=== PATIENT | male | born 1950 | race Caucasian/White ===

== ENCOUNTER 2016-04-14 13:05 | Emergency (ER) | payer OTHER ==
[2016-04-14] MEDS ORDERED: NS 1,000 ML IV ONE (13:46)
[2016-04-14 13:51] LABS: COLOR YELLOW; LEUKOCYTE ESTERASE,URINE NEGATIVE (NEGATIVE); NITRITE,URINE NEGATIVE (NEGATIVE); PH,URINE 5.5 (5.0-7.5)
[2016-04-14 13:58] LABS: % IMMATURE GRANULYOCYTES 0.2 % (0.0-1.1); ABSOLUTE IMMATURE GRANULOCYTES 0.02 10^3/uL (0.00-0.10); ADD DIFF? NO; ADD MORPH? NO; ADD SCAN? NO; ATYPICAL LYMPHOCYTE FLAG 0 (0-99); FRAGMENT RBC FLAG 0 (0-99); HEMATOCRIT 41.6 % (40.0-51.0); HEMOGLOBIN 13.3 g/dL (13.7-17.5); LEFT SHIFT FLG 0 (0-99); LIPEMIA HEMOLYSIS FLAG 80 (0-99); MEAN CELL HEMOGLOBIN 27.6 pg (27.9-34.1); MEAN CELL VOLUME 86.3 fL (81.5-99.8); MEAN PLATELET VOLUME 8.7 fL (8.7-11.7); PLATELET CLUMPS FLAG 0 (0-99); PLATELET COUNT 264 10^3/uL (150-400); RED BLOOD CELL COUNT 4.82 10^6/uL (4.40-6.38); RED CELL DISTRIBUTION WIDTH 14.7 % (11.5-15.2)
--- NOTE | 2016-04-14 13:59 | UCPHY ---
H & P Time Seen by Provider: 04/14/16 13:31 Patient Type: Established HPI/ROS: CHIEF COMPLAINT: Abdominal pain HISTORY OF PRESENT ILLNESS: 65-year-old male presents to urgent care by private vehicle complaining of abdominal pain. The patient states 1 week ago he noted blood in his urine. He saw his primary care provider and was started on antibiotics. He was told however that his urine culture was negative. Does report that the hematuria has resolved. He however has had continued right flank pain over the last 1 week and yesterday after work he thought that he was dehydrated so after he drank a large amount of water he developed severe pain in his abdomen which has persisted since last night. No nausea or vomiting. He is having normal bowel movements and passing gas normally. No other reported trauma. He had reported chills yesterday when he came home from work although he did not take his temperature. He denies dysuria, urgency or frequency with urination. He has never had pain like this in the past. No URI symptoms. No chest pain or difficulty breathing. No headache. REVIEW OF SYSTEMS: Constitutional: No fever, no chills. Eyes: No double or blurry vision. ENT: No sore throat. Respiratory: No cough, no shortness of breath. Cardiac: No chest pain. Gastrointestinal: Abdominal pain as above. No vomiting or diarrhea. Genitourinary: Hematuria now resolved as above. No dysuria. Musculoskeletal: No neck or back pain. Skin: No rashes. Neurological: No headache. Past Medical/Surgical History: Multiple orthopedic surgeries, fusion from T12-L2 on March 05, [address] Al Chapman. Social History: Smoking Status: Never smoked Physical Exam: General Appearance: Alert, no distress. Pleasant. No apparent distress. Afebrile this temperature 36.8, 152/80, heart rate 94, 94% on room air. Eyes: Pupils equal and round. Extraocular motions are all intact. ENT: Mouth: Mucous membranes moist. Respiratory: No wheezing, rhonchi, or rales, lungs are clear to auscultation. Cardiovascular: Regular rate and rhythm. Gastrointestinal: Abdomen is soft. He has tenderness with palpation in the right lower quadrant. He has rebound tenderness. No guarding. No palpable masses. Has reproducible pain with palpation in the right flank area as well. No other CVA tenderness. No CVA tenderness on the left. Neurological: Alert and oriented x 3, cranial nerves II through XII grossly intact Skin: Warm and dry, no rashes. Musculoskeletal: Nontender to palpate along the cervical, thoracic or lumbar spine. Neck is supple. Extremities: Full range of motion and no peripheral edema. Patient has weakness with dorsi and plantar flexion in the right foot which is chronic for him. Psychiatric: Patient is oriented X 3, there is no agitation. Constitutional: Initial Vital Signs Temperature (C) 36.8 C 04/14/16 13:10 Heart Rate 94 04/14/16 13:10 Respiratory Rate 16 04/14/16 13:10 Blood Pressure 152/80 H 04/14/16 13:10 O2 Sat (%) 94 04/14/16 13:10 O2 Delivery Mode Room Air Allergies/Adverse Reactions: erythromycin base [Erythromycin Base] Allergy (Unknown, Verified 04/14/16 13:17) Other-Enter Comments oxycodone HCl [From Percocet] Allergy (Unknown, Verified 04/14/16 13:17) Rash hydromorphone HCl [From Dilaudid] Allergy (Verified 04/14/16 13:17) Other-Enter Comments Home Medications: Medication Instructions Recorded Ciprofloxacin [Cipro 500 mg] 500 mg PO BID #20 tab 04/14/16 Hydrocodone/APAP 5/325 [[place] 1 each PO Q4-6PRN PRN #15 tab 04/14/16 5/325 (*)] Symbicort 160-4.5 Mcg Inh (*) 04/14/16 metroNIDAZOLE [Flagyl 500 mg (*)] 500 mg PO TID #30 tab 04/14/16 Medical Decision Making - Diagnostics Imaging: CT imaging of the abdomen and pelvis reveals sigmoid diverticulitis without evidence of perforation. No renal mass noted. Right kidney is normal. This is reported to me by Dr. Anthony Arana at 3:05 p.m.. ED Course/Re-evaluation: The case was discussed with Dr. Sundar Alamo, secondary supervising physician. White blood cell count is normal. The patient has a hemoglobin of 13.3 with a normal hematocrit. His creatinine is normal. CT scan of the abdomen and pelvis with IV contrast has been ordered and is pending. CT imaging of the abdomen and pelvis with IV contrast reveals sigmoid diverticulitis. No evidence of perforation. This is in a similar location when he had diverticulitis in 2015. I offered admission to the hospital, however the patient declined. He is not vomiting and he has no fever. Feels comfortable treating this as an outpatient with oral medications. He will be treated with oral Flagyl 500 mg three times daily and oral Cipro 500 mg twice daily for 10 days. Encouraged him to follow up with primary care provider in 1-2 days to recheck. Was given strict instructions to return if he develops vomiting, fever, increasing pain, or if he seems worse in any way. Patient verbalized understanding and agreed. Patient was also given prescription for hydrocodone which she has taken in the past with relief. Differential Diagnosis: Including but not limited to diverticulitis, bowel obstruction, carcinoma, kidney stone, urinary tract infection, pyelonephritis - Data Points Laboratory Results: Laboratory Results 04/14/16 13:55 04/14/16 13:55 04/14/16 04/14/16 13:55 13:40 WBC 8.40 10^3/uL (3.80-9.50) RBC 4.82 10^6/uL (4.40-6.38) Hgb 13.3 L g/dL (13.7-17.5) Hct 41.6 % (40.0-51.0) MCV 86.3 fL (81.5-99.8) MCH 27.6 L pg (27.9-34.1) MCHC 32.0 L g/dL (32.4-36.7) RDW 14.7 % (11.5-15.2) Plt Count 264 10^3/uL (150-400) MPV 8.7 fL (8.7-11.7) Neut % (Auto) 68.7 % (39.3-74.2) Lymph % (Auto) 17.3 % (15.0-45.0) [place] % (Auto) 12.6 % (4.5-13.0) Eos % (Auto) 0.8 % (0.6-7.6) Baso % (Auto) 0.4 % (0.3-1.7) Nucleat RBC Rel Count 0.0 % (0.0-0.2) Absolute Neuts (auto) 5.77 10^3/uL (1.70-6.50) Absolute Lymphs (auto) 1.45 10^3/uL (1.00-3.00) Absolute Monos (auto) 1.06 H 10^3/uL (0.30-0.80) Absolute Eos (auto) 0.07 10^3/uL (0.03-0.40) Absolute Basos (auto) 0.03 10^3/uL (0.02-0.10) Absolute Nucleated RBC 0.00 10^3/uL (0-0.01) Immature Gran % 0.2 % (0.0-1.1) Immature Gran # 0.02 10^3/uL (0.00-0.10) Sodium 140 mEq/L (134-144) Potassium 3.7 mEq/L (3.5-5.2) Chloride 102 mEq/L (97-110) Carbon Dioxide 27 mEq/l (22-31) Anion Gap 11 mEq/L (8-16) BUN 16 mg/dL (7-23) Creatinine 0.7 mg/dL (0.7-1.3) Estimated GFR > 60 Glucose 68 L mg/dL (70-100) Calcium 9.1 mg/dL (8.5-10.4) Urine Color YELLOW Urine Appearance CLEAR Urine pH 5.5 (5.0-7.5) Ur Specific Pyrites 1.025 (1.002-1.030) Urine Protein NEGATIVE (NEGATIVE) Urine Ketones NEGATIVE (NEGATIVE) Urine Blood NEGATIVE (NEGATIVE) Urine Nitrate NEGATIVE (NEGATIVE) Urine Bilirubin NEGATIVE (NEGATIVE) Urine Urobilinogen 0.2 EU (0.2-1.0) Ur Leukocyte Esterase NEGATIVE (NEGATIVE) Urine RBC NONE SEEN /hpf (0-3) Urine WBC 1-3 /hpf (0-3) Ur Epithelial Cells TRACE /lpf (NONE-1+) Urine Bacteria TRACE H /hpf (NONE SEEN) Urine Mucus 2+ H /lpf (NONE-1+) Urine Yeast OCCASIONAL H /hpf (NONE SEEN) Urine Glucose TRACE H (NEGATIVE) Departure - Departure Disposition: Home, Routine, Self-Care Clinical Impression: Diverticulitis Qualifiers: Diverticulitis site: large intestine Diverticulitis bleeding: without bleeding Diverticulitis complication: without perforation or abscess Qualifier Code: ( K57.32) Diverticulitis of large intestine without perforation or abscess without bleeding Condition: Good Instructions: Diverticulitis (ED) Additional Instructions: Cipro twice daily and Flagyl three times daily for 10 days. Hydrocodone for severe pain as directed. You declined admission to the hospital. Please return to urgent care or go to the emergency department if you develop fever, if you begin vomiting, if you develop worsening pain, or if you feel worse in any way. Referrals: Trell Cervantes MD [Primary Care Provider] - 1-2 days without fail Prescriptions: Ciprofloxacin [Cipro 500 mg] 500 mg PO BID #20 tab metroNIDAZOLE [Flagyl 500 mg (*)] 500 mg PO TID #30 tab Hydrocodone/APAP 5/325 [[place] 5/325 (*)] 1 each PO Q4-6PRN PRN #15 tab PRN Reason: Pain, Severe - PQRS PQRS Measurement: 134: Depression screening and followup, PRIME MD-PHQ2 (12 years and older) Over the last 2 weeks, how often have you been bothered by any of the following problems? 1. Feeling down, depressed, or hopeless? 2. Little interest or pleasure in doing things? Patient answered no to both 1 and 2 130: Documentation of medications. Reviewed all patient medications, doses, route and frequency. 226: Do you smoke? No. 47: 65 and older: Advanced care planning. Patient designates surrogate decision maker as his . Patient has advanced directive. 51: 18 years old and older with diagnosis of COPD, spirometry performance. Patient has no history of COPD 52: 18 years old and older with COPD and symptoms of COPD or FEV1<60% predicted prescribed a B Agonist. Not applicable
[2016-04-14 14:01] LABS: BACTERIA TRACE /hpf (NONE SEEN); MUCUS 2+ /lpf (NONE-1+); RBC,URINE NONE SEEN /hpf (0-3); YEAST OCCASIONAL /hpf (NONE SEEN)
[2016-04-14 14:15] LABS: ANION GAP 11 mEq/L (8-16); CALCIUM 9.1 mg/dL (8.5-10.4); CARBON DIOXIDE 27 mEq/l (22-31); CHLORIDE 102 mEq/L (97-110); CREATININE 0.7 mg/dL (0.7-1.3); GLOMERULAR FILTRATION RATE > 60; GLUCOSE 68 mg/dL (70-100); POTASSIUM 3.7 mEq/L (3.5-5.2); SODIUM 140 mEq/L (134-144)
[2016-04-14] MEDS ORDERED: IOPAMIDOL (ISOVUE-300) 100 ML BTL IV ONE (14:29)
--- NOTE | 2016-04-14 15:08 | CT ---
CT Scan of the Abdomen and Pelvis (With Contrast) Clinical Indications: Abdominal swelling, bilateral pain, fever, hematuria Technique: 90 mL of Isovue 300 were given intravenously by machine power injection. Multidetector he lical CT imaging was performed from the diaphragm to the symphysis pubis. Dose reduction techniques w ere utilized. Comparison: July 21, 2014 (sigmoid diverticulitis) Findings: Abdomen: The lung bases are clear, and there is no pleural fluid. The liver is normal. The biliary ducts and gallbladder are unremarkable. The pancreas and spleen are normal. The adrenal glands and right kidney are normal. There is solitary stable nonobstructive left lower pole nephrolithiasis. Th ere is no evidence of a renal mass or obstruction. The urinary bladder is decompressed without obviou s abnormality. No adenopathy and no masses are found. No aneurysm of the abdominal aorta. No ascite s or evidence of bowel obstruction. Pelvis: In the upper third of the patient's chronically redundant sigmoid, is mesenteric edema withi n the sigmoid mesentery in the same location as the patient's previously more advanced sigmoid divert iculitis. There is no free air or free fluid. No abscess is identified. There is no evidence for prox imal colonic obstruction. The urinary bladder is not distended. No free fluid in the pelvis. No oriana s are identified. Bowel loops are normal. No evidence for pelvic abscess. There is now more extensiv e orthopedic fusion of the lumbar spine. Impression: 1. Early diverticulitis in the same location as the previous more severe diverticulitis. 2. Stable nonobstructive left nephrolithiasis. Results discussed with Natalia Matias. General information for patients regarding this examination can be found at [email or web address]. If you have questions or comments about this report, please contact me at [phone] (hospital) or [phone] (cell).
[2016-04-14 16:21] VITALS: BP 124/79; PULSE 90; RESP 20; TEMP 98.1; O2SAT 95
== END 2016-04-14 16:19 | disposition home or self-care (01) ==
LOC: CED 13:05
DX: K57.32 Diverticulitis of large intestine without perforation or abscess without bleeding (principal)
CPT/HCPCS: 74177-PO; 80048-PO; 81003-PO; 81015-PO; 85025-PO; 96360-PO; G0463-PO; Q9967

== ENCOUNTER 2016-05-24 11:38 | Emergency (ER) | payer OTHER ==
[2016-05-24 11:48] VITALS: BP 147/95; PULSE 106; RESP 16; TEMP 99.3; O2SAT 93
[2016-05-24] MEDS ORDERED: ALBUTEROL 3 ML DEYVIAL IH ONE (12:50)
[2016-05-24] MEDS ORDERED: predniSONE 20 MG TAB PO ONE (13:02)
[2016-05-24] MEDS ORDERED: IPRATROPIUM/ALBUTEROL 3 ML DEYVIAL IH ONE (13:02)
--- NOTE | 2016-05-24 13:47 | UCPHY ---
H & P Time Seen by Provider: 05/24/16 12:37 Patient Type: Established HPI/ROS: CHIEF COMPLAINT: Persistent cough and sore throat HISTORY OF PRESENT ILLNESS: 66-year-old male presents with 4 days of a persistent cough x4 days, sore throat, and some discomfort in his chest now secondary to coughing. Cough is productive of greenish sputum. Patient has a history of asthma. Uses an albuterol inhaler as well as Spiriva. Has been using these with minimal improvement. No fever. No change in his somewhat chronic sputum production, no vomiting or diarrhea. No chest pain. Patient did receive an influenza vaccination this year. No fever, chills, chest pain, shortness of breath, palpitations, vomiting, diarrhea, urinary complaints, headache, lightheadedness. REVIEW OF SYSTEMS: Aside from elements discussed in the HPI, a comprehensive 10-point review of systems was reviewed and is negative. PAST MEDICAL HISTORY: COPD. SOCIAL HISTORY: Patient is . VITAL SIGNS: see nurse's notes. GENERAL: Well-developed, well-nourished, in no acute distress. HEENT: Atraumatic Eyes: PERRL, EOMI, no conjunctival injection. Ears: TM clear bilaterally. Nose: No discharge. Mouth: moist mucous membranes. Pharynx: Mild erythema, no exudates, no swelling, no abscess. Uvula is midline. NECK: Supple, no adenopathy, no meningismus, no tenderness. Negative Kernig's and Brudzinski's. LUNGS: Diffuse wheezes, crackles, occasional rhonchi. CARDIAC: Regular rate and rhythm, no rubs, murmurs or gallops. ABDOMEN: Soft, nontender, bowel sounds normal. BACK: No CVA tenderness. EXTREMITIES: Normal, no edema, FROM. NEURO: Alert and oriented, grossly nonfocal. SKIN: Warm and dry, no rash. PSYCHIATRIC: Normal mentation, no agitation. Smoking Status: Never smoked Constitutional: Initial Vital Signs Temperature (C) 37.4 C 05/24/16 11:44 Heart Rate 106 H 05/24/16 11:44 Respiratory Rate 16 05/24/16 11:44 Blood Pressure 147/95 H 05/24/16 11:44 O2 Sat (%) 93 05/24/16 11:44 O2 Delivery Mode Room Air Allergies/Adverse Reactions: erythromycin base [Erythromycin Base] Allergy (Unknown, Verified 05/24/16 11:48) Other-Enter Comments oxycodone HCl [From Percocet] Allergy (Unknown, Verified 05/24/16 11:48) Rash hydromorphone HCl [From Dilaudid] Allergy (Verified 05/24/16 11:48) Other-Enter Comments Home Medications: Medication Instructions Recorded Spiriva Handihaler 05/24/16 Symbicort 160-4.5 Mcg Inh (*) 05/24/16 predniSONE 10 - 40 mg PO DAILY 9 Days 05/24/16 Medical Decision Making - Diagnostics Imaging: Xray: Chest x-ray was obtained. I viewed the images myself on the PACS system. My interpretation of the images is: Bibasilar atelectasis, bronchitis , no focal pneumonia. The radiology interpretation is: Agrees. I discussed the results with the patient. ED Course/Re-evaluation: 66-year-old male with asthma presenting with URI symptoms, significant cough, wheezing, crackles on examination. Albuterol and DuoNeb nebulizer treatments were administered. Patient received prednisone 60 mg. X-ray demonstrates no focal pneumonia. Patient was discharged with prednisone taper as well as azithromycin. On re-examination after the neb treatments, the patient's bronchospasm is significantly reduced, Differential Diagnosis: Differential diagnosis for the patient's cough was considered including but not limited to viral versus bacterial bronchitis, asthma, COPD, pulmonary emboli, upper respiratory infection, lower respiratory infection, and bronchospasm. - Data Points Medications Given: Discontinued Medications Albuterol (Proventil Neb) 3 ml IH EDNOW ONE Stop: 05/24/16 12:51 Last Admin: 05/24/16 13:03 Dose: 3 ml Albuterol/Ipratropium (Duoneb) 3 ml IH EDNOW ONE Stop: 05/24/16 13:03 Last Admin: 05/24/16 13:21 Dose: 3 ml Prednisone (Prednisone) 60 mg PO EDNOW ONE Stop: 05/24/16 13:03 Last Admin: 05/24/16 13:18 Dose: 60 mg Departure - Departure Disposition: Home, Routine, Self-Care Clinical Impression: Bronchitis, Cough Asthma Qualifiers: Asthma severity: moderate persistent Asthma complication type: with acute exacerbation Qualified Code(s): J45.41 - Moderate persistent asthma with (acute ) exacerbation Condition: Good Instructions: Acute Bronchitis (ED) Additional Instructions: Please begin using your albuterol nebulizer treatments 4 times daily. Please take the prednisone as directed. There is no sign of pneumonia on your x-ray. Follow up with your primary care physician if you're not improving as expected. Referrals: Trell Cervantes MD [Primary Care Provider] - As per Instructions Prescriptions: predniSONE 10 - 40 mg PO DAILY 9 Days - PQRS PQRS Measurement: 134: Depression screening and followup, PRIME MD-PHQ2 (12 years and older) Over the last 2 weeks, how often have you been bothered by any of the following problems? 1. Feeling down, depressed, or hopeless? 2. Little interest or pleasure in doing things? Patient answered no to both 1 and 2 130: Documentation of medications. Reviewed all patient medications, doses, route and frequency. 226: Do you smoke? No. 47: 65 and older: Advanced care planning. Patient designates surrogate decision maker as spouse. 51: 18 years old and older with diagnosis of COPD, spirometry performance. Spirometry not performed; equipment not available. Patient has no history of COPD. 52: 18 years old and older with COPD and symptoms of COPD or FEV1<60% predicted prescribed a B Agonist. Patient has no history of COPD Spirometry not performed; equipment not available.
== END 2016-05-24 14:02 | disposition home or self-care (01) ==
LOC: CED 11:38
DX: J20.9 Acute bronchitis, unspecified (principal)
CPT/HCPCS: 71020-PO; G0463-PO

== ENCOUNTER → 2017-04-05 | Outpatient (CLI) | payer OTHER | LOC: CIMAGING 15:15 | PROVIDERS: ATTEND Family Medicine | DX: J40 Bronchitis, not specified as acute or chronic (principal); J98.4 Other disorders of lung | CPT/HCPCS: 70210-PO; 71046-PO ==

== ENCOUNTER → 2018-07-11 | Outpatient (CLI) | payer OTHER | LOC: FIMAGING 08:44 | PROVIDERS: ATTEND Family Medicine | DX: K22.8 Other specified diseases of esophagus (principal) ==